=== PATIENT | male | born 1995 | race Caucasian/White ===

== ENCOUNTER 2019-12-12 16:46 | Emergency (ER) | payer OTHER, BC ==
[~2019-12-12] VITALS: Ht 177.8 cm; Wt 108.9 kg
[~2019-12-12 16:46] MED LIST: ANTIBIOTIC O500 U/GM TP; HYDROCODONE BIT1 T11 PO; MOTRIN400 MG PO; MOTRIN800 MG PO; NAPROSYN500 MG PO; VIBRAMYCIN100 MG PO; VICODIN 5/500 505 MG PO
== END 2019-12-12 18:30 | disposition home or self-care (01) ==
LOC: ED 16:46
DX: S99.911A Unspecified injury of right ankle, initial encounter (principal); V98.8XXA Other specified transport accidents, initial encounter; Y93.89 Activity, other specified; Y92.89 Other specified places as the place of occurrence of the external cause; Y99.8 Other external cause status